=== PATIENT | female | born 1955 | race Caucasian/White ===

== ENCOUNTER 2016-10-19 11:49 | Emergency (ER) | payer MEDICARE, MEDICAID ==
[~2016-10-19] VITALS: Ht 162.6 cm; Wt 78.0 kg
[2016-10-19 12:00] VITALS: BP 123/79
[2016-10-19] MEDS ORDERED: KETOROLAC TROMETH 60MG/2ML VIAL IM ONE (14:00)
== END 2016-10-19 14:20 | disposition home or self-care (01) ==
LOC: ER 11:59
DX: S83.92XA Sprain of unspecified site of left knee, initial encounter (principal); S90.02XA Contusion of left ankle, initial encounter; M17.12 Unilateral primary osteoarthritis, left knee; J44.9 Chronic obstructive pulmonary disease, unspecified; I10 Essential (primary) hypertension; V29.49XA Motorcycle driver injured in collision with other motor vehicles in traffic accident, initial encounter; Y93.89 Activity, other specified; Y99.8 Other external cause status; Y92.488 Other paved roadways as the place of occurrence of the external cause
CPT/HCPCS: 29505; 73562; 73610; 96372; 99284; J1885